=== PATIENT | male | born 1995 | race African-American/Black ===

== ENCOUNTER 2018-09-25 07:48 | Emergency (ER) | payer OTHER ==
[~2018-09-25] VITALS: Ht 414 cm; Wt 88.5 kg
[2018-09-25 07:56] VITALS: Ht 414 cm; Wt 88.5 kg
[2018-09-25 11:46] VITALS: BP 123/81
== END 2018-09-25 11:46 | disposition home or self-care (01) ==
LOC: ED 07:48
DX: S02.31XA Fracture of orbital floor, right side, initial encounter for closed fracture (principal); J45.909 Unspecified asthma, uncomplicated; Y04.0XXA Assault by unarmed brawl or fight, initial encounter; Y93.89 Activity, other specified; Y92.89 Other specified places as the place of occurrence of the external cause; Y99.8 Other external cause status